=== PATIENT | male | born 1975 | race Caucasian/White ===

== ENCOUNTER 2017-02-03 17:13 | Emergency (ER) | payer SELFPAY ==
[~2017-02-03] VITALS: Ht 188 cm; Wt 122.0 kg
[2017-02-03 17:14] VITALS: BP 178/87; PULSE 61; RESP 14; TEMP 97.7; O2SAT 95
--- NOTE | 2017-02-03 17:24 | PD ---
Physical Exam Time Seen by Provider: 17:22 Narrative 41yo M c/o R lower tooth pain since Tuesday morning. Denies fever, vomiting. Patient seen in triage. VS reviewed. Awaiting bed placement. . Data Data Last Documented VS Vital Signs Date Time Temp Pulse Resp B/P Pulse Ox O2 Delivery O2 Flow Rate FiO2 02/03/17 17:14 97.7 61 14 178/87 95 MDM Supervised Visit with SURINDER: Tamara Page Feb 03, 2017 17:24
--- NOTE | 2017-02-03 18:13 | PD ---
HPI Chief Complaint: Oral / Dental Pain or Problem Time Seen by Provider: 18:10 Travel History International Travel<30 days: No Contact w/Intl Traveler<30days: No Traveled to known affect area: No History of Present Illness HPI 41-year-old Afro-[place] male comes in with pain in the #32 tooth over the past week. Patient has pain swelling in the right posterior lower jaw, and pain with swallowing but no swelling in the throat. Patient denies fever or chills. His pain is 9/10. It is worse with exposure to heat or cold. He knows he has a bad tooth and hasn't appointment on Tuesday to see his dentist. His states his pain has gotten worse in the last 24 hours. States the swelling in the right lower jaw has also gotten worse. He has no other symptoms. He has no known drug allergies. [facility] Social History Alcohol Use: Yes Tobacco Use: No Substance Use: No Allergies-Medications (Allergen,Severity, Reaction): Coded Allergies: No Known Allergies (Unverified , 02/03/17) Review of Systems Except as stated in HPI: all other systems reviewed are Neg General / Constitutional: No: Fever Eyes: No: Visual changes HENT: Positive: Dental Difficulties, Earache, No: Headaches, Vertigo, Lightheadedness, Sore Throat, Rhinitis, Rhinorrhea, Gingival Bleeding, Ear Discharge Cardiovascular: No: Chest Pain or Discomfort Respiratory: No: Shortness of Breath Gastrointestinal: No: Abdominal Pain Genitourinary: No: Dysuria Musculoskeletal: No: Pain Skin: No Rash Neurologic: No: Weakness Psychiatric: No: Depression Endocrine: No: Polydipsia Hematologic/Lymphatic: No: Easy Bruising Physical Exam Narrative GENERAL: Patient appears in mild to moderate distress. SKIN: Warm and dry. Normal color. Normal turgor. HEAD: Atraumatic. Normocephalic. Patient has tender swelling over the right lower jaw at the ramus. EYES: Pupils equal and round. No scleral icterus. No injection or drainage. ENT: No nasal bleeding or discharge. Mucous membranes pink and moist. Patient has large caries in the #32 tooth with localized swelling and tenderness. Pharynx is normal-appearing without significant lymphadenopathy. Uvula is midline. Airway is patent. TMs are clear bilaterally. NECK: Trachea midline. Supple and nontender without significant lymphadenopathy noted. CARDIOVASCULAR: Regular rate and rhythm. RESPIRATORY: No accessory muscle use. Clear to auscultation. Breath sounds equal bilaterally. GASTROINTESTINAL: Abdomen soft, non-tender, nondistended. Hepatic and splenic margins not palpable. MUSCULOSKELETAL: Extremities without clubbing, cyanosis, or edema. No obvious deformities. NEUROLOGICAL: Awake and alert. No obvious cranial nerve deficits. Motor grossly within normal limits. Five out of 5 muscle strength in the arms and legs. Normal speech. PSYCHIATRIC: Appropriate mood and affect; insight and judgment normal. Data Data Last Documented VS Vital Signs Date Time Temp Pulse Resp B/P Pulse Ox O2 Delivery O2 Flow Rate FiO2 02/03/17 17:14 97.7 61 14 178/87 95 Orders Amoxicillin (Trimox) (02/03/17 18:15) Ibuprofen (Motrin) (02/03/17 18:15) [facility] Medical Decision Making Medical Screen Exam Complete: Yes Emergency Medical Condition: Yes Differential Diagnosis Dental caries. Dental pain. Dental abscess. Narrative Course Patient is medically stable at time of exam patient is given amoxicillin 875 by mouth now as well as 800 mg ibuprofen by mouth now. Patient will be continued on amoxicillin 875 twice a day 10 days. Patient is given ibuprofen 800 mg 3 times daily with food #30. Patient is also given Magic mouthwash 5-10 mL's every 2 hours as needed for dental pain. 120 mL 1 refill. Patient is to follow with his dentist as scheduled next Tuesday or return to emergency Department with worsening symptoms as needed. Diagnosis Primary Impression: Abscess, dental Referrals: Dentist Patient Instructions: Acute Dental Trauma (GEN), Dental Caries (ED), General Instructions Additional Instructions: Patient is medically stable at time of exam patient is given amoxicillin 875 by mouth now as well as 800 mg ibuprofen by mouth now. Patient will be continued on amoxicillin 875 twice a day 10 days. Patient is given ibuprofen 800 mg 3 times daily with food #30. Patient is also given Magic mouthwash 5-10 mL's every 2 hours as needed for dental pain. 120 mL 1 refill. Patient is to follow with his dentist as scheduled next Tuesday or return to emergency Department with worsening symptoms as needed. Med/Other Pt SpecificInfo: Prescription(s) given Disposition: 01 DISCHARGE HOME Condition: Stable Giorgi Baig Feb 03, 2017 18:13
[2017-02-03] MEDS ORDERED: AMOXICILLIN 875 MG TAB PO ONE (18:15)
[2017-02-03] MEDS ORDERED: IBUPROFEN 800 MG TAB PO ONE (18:15)
[2017-02-03] MEDS ORDERED: MAGICADU2 SWISH-SWAL (18:20)
[2017-02-03] MEDS ORDERED: AMOX875T PO (18:20)
[2017-02-03] MEDS ORDERED: IBUP800T23 PO (18:20)
[2017-02-03] MEDS ORDERED: NAPR220T95 PO (18:42)
[2017-02-03] MEDS ORDERED: ADVI200C5 PO (18:42)
== END 2017-02-03 18:47 | disposition home or self-care (01) ==
LOC: NEPK 17:13
DX: L02.91 Cutaneous abscess, unspecified (principal)
CPT/HCPCS: 99283

== ENCOUNTER 2017-07-12 14:03 | Emergency (ER) | payer SELFPAY ==
[~2017-07-12 14:03] MED LIST: ADVI200C5 PO; AMOX875T PO; IBUP1TAB7 PO; MAGICADU2 SWISH-SWAL; NAPR220T95 PO
[2017-07-12 14:04] VITALS: BP 173/75; PULSE 53; RESP 18; TEMP 99.2; O2SAT 100
[2017-07-12] MEDS ORDERED: IBUP-232 PO (15:25)
[2017-07-12] MEDS ORDERED: PENI500T PO (15:25)
[2017-07-12] MEDS ORDERED: MAGICADU2 SWISH-SPIT (15:25)
--- NOTE | 2017-07-12 15:29 | PD ---
HPI Chief Complaint: Oral / Dental Pain or Problem Time Seen by Provider: 15:24 Travel History International Travel<30 days: No Contact w/Intl Traveler<30days: No Traveled to known affect area: No History of Present Illness HPI 40-year-old male presents for evaluation of dental pain. Symptoms started yesterday. Throbbing pain, constant, localized to the right mandibular molar region, worse with chewing. Denies fevers, chills, dental trauma. No other complaints. PFSH Social History Alcohol Use: Yes Tobacco Use: Yes Substance Use: No Allergies-Medications (Allergen,Severity, Reaction): Coded Allergies: No Known Allergies (Unverified , 02/03/17) Reported Meds & Prescriptions Reported Meds & Active Scripts Active Magic Mouthwash Adult Liq (Multi-Ingredient Mouthwash/Gargle) 120 Ml Susp 10 Ml SWISH-SPIT ACHS Each 5mL contains: Nystatin 200,000units, Diphenhydramine 4.25mg, Viscous Lidocaine 10mg, Chapa syrup 0.8 mL Ibuprofen 600 Mg Tab 600 Mg PO Q6H PRN Penicillin V Potassium 500 Mg Tab 500 Mg PO Q8H 7 Days Magic Mouthwash Adult Liq (Multi-Ingredient Mouthwash/Gargle) 120 Ml Susp 5 Ml SWISH-SWAL ACHS Each 5 mL contains: Nystatin 200,000 units, Diphenhydramine 4.25 mg, Viscous Lidocaine 10 mg, Chapa syrup 0.8 mL Ibuprofen 800 Mg Tab 800 Mg PO Q8H PRN Amoxicillin 875 Mg Tab 875 Mg PO BID Reported Aleve (Naproxen Sodium) 220 Mg Tab 220 Mg PO BID PRN Advil (Ibuprofen) 200 Mg Cap 200 Mg PO Q4H PRN Review of Systems General / Constitutional: No: Fever, Chills HENT: Positive: Dental Difficulties Physical Exam Narrative GENERAL: Well-nourished male in no acute distress SKIN: Warm and dry. HEAD: Atraumatic. Normocephalic. EYES: Pupils equal and round. No scleral icterus. No injection or drainage. ENT: No nasal bleeding or discharge. Mucous membranes pink and moist. Right mandibular molars are decayed and tender to palpation. There is no trismus, no sublingual edema, no facial edema. NECK: Trachea midline. No JVD. No lymphadenopathy or submandibular edema CARDIOVASCULAR: Regular rate and rhythm. No murmur appreciated. RESPIRATORY: No accessory muscle use. Clear to auscultation. Breath sounds equal bilaterally. Data Data Last Documented VS Vital Signs Date Time Temp Pulse Resp B/P (MAP) Pulse Ox O2 Delivery O2 Flow Rate FiO2 07/12/17 14:04 99.2 53 18 173/75 (107) 100 Room Air Orders Orders Ed Discharge Order (07/12/17 15:24) MDM Medical Decision Making Medical Screen Exam Complete: Yes Emergency Medical Condition: Yes Medical Record Reviewed: Yes Differential Diagnosis Dental caries, pulpitis, pericoronitis, periodontal abscess Narrative Course Recommended outpatient follow-up with dentist. He is stable for discharge. Diagnosis Primary Impression: Dental caries Additional Instructions: Medication as prescribed. Follow up with a dentist for definitive therapy. Return for any emergent medical conditions. Med/Other Pt SpecificInfo: Prescription(s) given Scripts Ebfujkme-Vkxoczjdeyybrsx-Woclkoois Liq (Magic Mouthwash Adult Liq) 120 Ml Susp 10 ML SWISH-SPIT ACHS for Mouth sores, #120 ML 1 Refill Each 5mL contains: Nystatin 200,000units, Diphenhydramine 4.25mg, Viscous Lidocaine 10mg, Chapa syrup 0.8 mL Prov: Sammy Pino MD 07/12/17 Ibuprofen (Ibuprofen) 600 Mg Tab 600 MG PO Q6H Y for Pain/Inflammation, #40 TAB 0 Refills Prov: Sammy Pino MD 07/12/17 Penicillin V Potassium (Penicillin V Potassium) 500 Mg Tab 500 MG PO Q8H for Infection for 7 Days, #21 TAB 0 Refills Prov: Sammy Pino MD 07/12/17 Disposition: 01 DISCHARGE HOME Condition: Stable Angel Gillespie Jul 12, 2017 15:29
== END 2017-07-12 18:29 | disposition home or self-care (01) ==
LOC: NEPD 14:03
DX: K02.9 Dental caries, unspecified (principal); Z72.0 Tobacco use
CPT/HCPCS: 99284